=== PATIENT | female | born 1980 | race Caucasian/White ===

== ENCOUNTER 2016-09-02 15:16 | Emergency (ER) | payer MEDICAID ==
[~2016-09-02] VITALS: Ht 149.9 cm; Wt 63.6 kg
[~2016-09-02 15:16] MED LIST: ACET325T33 PO; NITR-58 PO
[2016-09-02 15:45] VITALS: Ht 149.9 cm; Wt 63.6 kg
[2016-09-02 17:10] LABS: URINE BLOOD (Dip) POC Trace-intact (NEGATIVE)
[2016-09-02 17:49] LABS: ADD SCAN DIFF NO; BASOPHILS % 0.6 % (0.0-2.0); EOSINOPHILS # 0.1 10^3/ul (0.0-0.5); HEMATOCRIT 39.7 % (37.0-47.0); HEMOGLOBIN 13.3 g/dl (12.0-16.0); LYMPHOCYTES # 1.8 10^3/ul (0.8-2.9); LYMPHOCYTES % 28.1 % (15.0-51.0); MEAN CORPUSCULAR HEMOGLOBIN 30.1 pg (29.0-33.0); MEAN CORPUSCULAR HGB CONC 33.5 g/dl (32.0-37.0); MEAN CORPUSCULAR VOLUME 89.8 fl (82.0-101.0); MEAN PLATELET VOLUME 9.4 fl (7.4-10.4); MONOCYTE # 0.5 10^3/ul (0.3-0.9); MONOCYTES % 7.1 % (0.0-11.0); NEUTROPHILS % 61.9 % (39.0-77.0); PLATELET COUNT 367 10^3/UL (140-415); RED BLOOD COUNT 4.42 10^6/ul (4.20-5.40); RED CELL DISTRIBUTION WIDTH 12.9 % (11.5-14.5); WHITE BLOOD COUNT 6.5 10^3/ul (4.8-10.8)
[2016-09-02 18:03] LABS: ALBUMIN 4.8 g/dl (3.3-4.9); POTASSIUM 3.8 mmol/L (3.5-5.1)
[2016-09-02 18:05] LABS: BILIRUBIN,INDIRECT 0.2 mg/dl (0-1.1); BILIRUBIN,TOTAL 0.2 mg/dl (0.2-1.3); CREATININE 0.48 mg/dl (0.44-1.00)
[2016-09-02 18:06] LABS: ALBUMIN/GLOBULIN RATIO 1.33; TOTAL PROTEIN 8.4 g/dl (6.1-8.1)
[2016-09-02 18:07] LABS: CALCIUM 9.3 mg/dl (8.4-10.2)
--- NOTE | 2016-09-02 18:41 | ERD ---
ER Documentation Chief Complaint Date/Time DATE: 09/02/16 TIME: 18:40 Chief Complaint DIZZINESS X3 DAYS, HPI This 36-year-old female presents with dizziness and generalized weakness for the last 3 days associated with fatigue. She denies any fevers, vomiting, shortness breath or chest pain. She is here with her child who had a recent episode of diarrhea. ROS All systems reviewed and are negative except as per history of present illness. Medications Home Meds Active Scripts Acetaminophen* (Tylenol*) 325 Mg Tablet, 2 TAB PO Q8 Y for PAIN AND OR ELEVATED TEMP, #20 TAB Prov:FELTON HONG MD 11/30/15 Nitrofurantoin Monohyd Macrocr* (Macrobid*) 100 Mg Capsr, 100 MG PO BID for 7 Days, CAP Prov:FELTON HONG MD 11/30/15 Allergies Allergies: Coded Allergies: No Known Drug Allergies (Verified Allergy, Unknown, 11/30/15) PMhx/Soc Hx Alcohol Use: No Hx Substance Use: No Hx Tobacco Use: No Physical Exam Vitals Vital Signs Date Time Temp Pulse Resp B/P Pulse Ox O2 Delivery O2 Flow Rate FiO2 09/02/16 15:45 97.9 67 18 123/68 98 Physical Exam Const: [] Alert, not ill-appearing. Head: Atraumatic Eyes: Normal Conjunctiva ENT: Normal External Ears, Nose and Mouth. Neck: Full range of motion..~ No meningismus. Resp: Clear to auscultation bilaterally Cardio: Regular rate and rhythm, no murmurs Abd: Soft, non tender, non distended. Normal bowel sounds Skin: No petechiae or rashes Back: No midline or flank tenderness Ext: No cyanosis, or edema Neur: Awake and alert Psych: Normal Mood and Affect Result Diagram: 09/02/16 1745 09/02/16 174 Results 24 hrs Laboratory Tests Test 09/02/16 17:10 09/02/16 17:45 Bedside Urine pH (LAB) 7.0 Bedside Urine Protein (LAB) 1+ Bedside Urine Glucose (UA) Negative Bedside Urine Ketones (LAB) Negative Bedside Urine Blood Trace-intact Bedside Urine Nitrite (LAB) Negative Bedside Urine Leukocyte Esterase (L Negative White Blood Count 6.510^3/ul Red Blood Count 4.4210^6/ul Hemoglobin 13.3g/dl Hematocrit 39.7% Mean Corpuscular Volume 89.8fl Mean Corpuscular Hemoglobin 30.1pg Mean Corpuscular Hemoglobin Concent 33.5g/dl Red Cell Distribution Width 12.9% Platelet Count 30959^3/UL Mean Platelet Volume 9.4fl Neutrophils % 61.9% Lymphocytes % 28.1% Monocytes % 7.1% Eosinophils % 2.0% Basophils % 0.6% Nucleated Red Blood Cells % 0.0/100WBC Neutrophils # 4.010^3/ul Lymphocytes # 1.810^3/ul Monocytes # 0.510^3/ul Eosinophils # 0.110^3/ul Basophils # 0.010^3/ul Nucleated Red Blood Cells # 0.010^3/ul Sodium Level 143mmol/L Potassium Level 3.8mmol/L Chloride Level 103mmol/L Carbon Dioxide Level 25mmol/L Anion Gap 19 Blood Urea Nitrogen 13mg/dl Creatinine 0.48mg/dl Glucose Level 96mg/dl Calcium Level 9.3mg/dl Total Bilirubin 0.2mg/dl Direct Bilirubin 0.00mg/dl Indirect Bilirubin 0.2mg/dl Aspartate Amino Transf (AST/SGOT) 23IU/L Alanine Aminotransferase (ALT/SGPT) 26IU/L Alkaline Phosphatase 124IU/L Total Protein 8.4g/dl Albumin 4.8g/dl Globulin 3.60g/dl Albumin/Globulin Ratio 1.33 Procedures/MDM Patient presents with fatigue and generalized weakness and dizziness of uncertain etiology for last 3 days. She has normal vital signs. CBC and CMP and urine is normal and hCG is negative. Patient has no signs or symptoms of serious illness to discharge home with further observation, instructions for fluids and rest instructions to follow-up with primary doctor return to the ER for new or worsening symptoms. The patient was stable with no new complaints during the ER course. Clinically, there is no current evidence to suggest meningitis, sepsis, acute abdomen, pneumonia, acute coronary syndrome, pulmonary embolism, or any other emergent condition appearing to require further evaluation or hospitalization. The patient should certainly return for any new or worsening symptoms per the aftercare instructions. They should otherwise follow-up with her primary care doctor for reevaluation this week. Departure Diagnosis: Primary Impression: Dizziness Condition: Stable Patient Instructions: Dizziness, Unk Cause Additional Instructions: Examines normal hoy. Cheque otro vez con denis doctor primario en el proximo thomas or regresa para mas o nueva simptomas. TYE CORRAL MD Sep 02, 2016 18:40
== END 2016-09-02 18:51 | disposition home or self-care (01) ==
LOC: FTE 15:16
DX: R42 Dizziness and giddiness (principal)
CPT/HCPCS: 80053; 81003; 85025; Z7502; 99283